=== PATIENT | female | born 1965 | race Caucasian/White ===

== ENCOUNTER 2021-03-20 17:56 | Emergency (ER) | payer OTHER ==
[~2021-03-20] VITALS: Ht 152.4 cm; Wt 104.3 kg
[~2021-03-20 17:56] MED LIST: ASPIRIN CHEWABL81 MG PO; ATORVASTATIN CA80 MG PO; BENTYL10 MG PO; BREO ELLIPTA 11 EACH INH; CARVEDILOL 25MG25 MG PO; CEFDINIR300 MG PO; COLESTIPOL HCL1 GM PO; COZAAR 25MG TAB25 MG PO; HUMULIN R100 UNIT/1 SC; INSULIN SYRING1 EA11 SC; LANTUS100 UNIT/1 SC; LASIX40 MG PO; LEVOTHYROXINE50 MCG PO; NITROQUIK SL0.4 MG SL; OMEPRAZOLE40 MG PO; ONDANSETRON ODT4 MG SL; OZEMPIC0.25 MG/0. SC; PREDNISONE 20MG20 MG PO; VENTOLIN HFA IN18 GM INH; VITAMIN D350 MCG PO; VOLTAREN **OUT75 MG PO
[2021-03-20 19:34] LABS: BASOPHIL 0.4 % (0-2); EOSINOPHIL 1.8 % (0-5); HCT 39.3 % (37.0-47.0); HGB 12.8 g/dl (12.5-16.0); LYMPHOCYTE 26.9 % (15-48); MCH 27.6 pg (25.0-31.0); MCHC 32.6 g/dL (32.0-36.0); MCV 84.9 fL (78.0-100.0); MONOCYTE 5.9 % (0-12); MPV 11.6 fL (6.0-9.5); NEUTROPHIL 64.7 % (41-80); NRBC 0; PLT 279 K/uL (150-400); RBC 4.63 M/uL (4.20-5.40); RDW 14.3 % (11.5-14.0); WBC 12.5 K/uL (4.0-10.5)
[2021-03-20 20:14] LABS: ALBUMIN 3.2 g/dL (3.4-5.0); BILIRUBIN - TOTAL 0.3 mg/dL (0.2-1.0); BUN/CREAT RATIO (CALC) 15.6 RATIO; C-REACTIVE PROTEIN 1.5 mg/dL (<=0.90); CREATININE 0.77 mg/dL (0.51-0.95); GLOBULIN (CALCULATION) 3.7 g/dL; MAGNESIUM 1.7 mg/dL (1.8-2.4); PHOSPHORUS 3.1 mg/dL (2.6-4.7); POTASSIUM 3.1 mmol/L (3.5-5.1); TOTAL PROTEIN 6.9 g/dL (6.4-8.2)
[2021-03-20 20:51] LABS: BILIRUBIN NEGATIVE (NEGATIVE); BLOOD NEGATIVE Ery/uL (NEGATIVE); CLARITY CLEAR (CLEAR); COLOR YELLOW (YELLOW); GLUCOSE (U) NORMAL (NORMAL); LEUKOCYTES NEGATIVE Leu/uL (NEGATIVE); NITRITE NEGATIVE (NEGATIVE); PROTEIN NEGATIVE (NEGATIVE); UROBILINOGEN 0.2 mg/dL (0.2-1.0)
== END 2021-03-20 21:51 | disposition home or self-care (01) ==
LOC: FER 17:56
PROVIDERS: Emergency Medicine Emergency Medical Services
DX: E11.65 Type 2 diabetes mellitus with hyperglycemia (principal); E11.638 Type 2 diabetes mellitus with other oral complications; E87.6 Hypokalemia; Z88.5 Allergy status to narcotic agent
CPT/HCPCS: 36415; 70450; 71045; 80053; 81003; 82607; 83036; 83735; 84100; 84484; 85025; 86140; 93005; J3480; J7120

== ENCOUNTER 2021-12-15 10:25 | Emergency (ER) | payer OTHER ==
[~2021-12-15 10:25] MED LIST changes: +CYMBALTA60 MG PO; +DULOXETINE HCL30 MG PO
[2021-12-15 12:41] LABS: BILIRUBIN NEGATIVE (NEGATIVE); BLOOD NEGATIVE Ery/uL (NEGATIVE); CLARITY CLEAR (CLEAR); COLOR YELLOW (YELLOW); GLUCOSE (U) NORMAL (NORMAL); LEUKOCYTES NEGATIVE Leu/uL (NEGATIVE); NITRITE NEGATIVE (NEGATIVE); PROTEIN NEGATIVE (NEGATIVE); UROBILINOGEN 0.2 mg/dL (0.2-1.0)
[2021-12-15] MEDS ORDERED: MEDROL 4MG DOSEP4 MG PO (13:06)
[2021-12-15] MEDS ORDERED: CYCLOBENZAPRINE10 MG PO (13:06)
== END 2021-12-15 13:29 | disposition home or self-care (01) ==
LOC: FER 10:25
PROVIDERS: Nurse Practitioner Family
DX: M54.50 Low back pain, unspecified (principal); E11.9 Type 2 diabetes mellitus without complications; I25.2 Old myocardial infarction; I50.9 Heart failure, unspecified; J44.9 Chronic obstructive pulmonary disease, unspecified
CPT/HCPCS: 81003; 96372; 99283; J1100; J1885